=== PATIENT | male | born 1960 | race Caucasian/White ===

== ENCOUNTER 2018-12-25 22:59 | Emergency (ER) | payer OTHER ==
[~2018-12-25] VITALS: Ht 170.1 cm; Wt 86.2 kg
--- NOTE | ~2018-12-25 | EKG ---
[place], [place] ELECTROCARDIOGRAM REPORT NAME: JAVIER GARZON UNIT #: [id number] ROOM: DOCTOR: EPIPHANY DRAFT REPORT BIRTHDATE: [birth year] [facility] Test Date: 2018-12-25 Test Time: 23:49:00 Pat Name: JAVIER GARZON Department: ER Room: 17 Gender: M [employer] Sales Representative: Charlie Merlos : 1960 Requested By: ROSALBA MAC Order Number: [id number] Reading MD: Alice Mendoza Measurements Intervals [place] Rate: 106 P: 41 IL: 152 QRS: 14 QRSD: 79 T: -56 QT: 328 QTc: 436 Interpretive Statements Sinus tachycardia Nonspecific T abnormalities, Electronically Signed On 12-30-2018 12:55:20 PDT by Alice Mendoza CM:EKGRPT:ELECTROCARDIOGRAM REPORT [id number] ROSALBA MAC EPIPHANY DRAFT REPORT ROSALBA MAC
[2018-12-25] MEDS ORDERED: NORVASC2.5 MG PO (23:19)
[2018-12-25] MEDS ORDERED: ALPRAZOLAM0.5 M3 PO (23:19)
[2018-12-25] MEDS ORDERED: ZYRTEC10 M3 PO (23:20)
[2018-12-25] MEDS ORDERED: FLONASE ALLERG9.9 ML NAS (23:20)
[2018-12-25 23:46] LABS: BASO % 0.2 % (0.0-1.0); EOS # 0.1 10*3/uL (0.0-0.4); EOS % 0.9 % (1.0-4.0); HEMATOCRIT 41.7 % (42.0-52.0); HEMOGLOBIN 14.8 g/dl (14.0-18.0); LYMPH % 15.6 % (27.0-41.0); MEAN CELL VOLUME 89.9 fl (80.0-94.0); MEAN CORPUSCULAR HGB 31.9 pg (27.0-31.0); MEAN CORPUSCULAR HGB CONC 35.5 g/dl (33.0-37.0); MEAN PLATELET VOLUME 9.9 fl (9.6-12.3); MONO # 0.9 10*3/uL (0.1-1.0); MONO % 7.3 % (3.0-9.0); NEUT # 9.5 10*3/uL (2.3-7.9); NEUT % 75.4 % (47.0-73.0); PLATELET COUNT AUTOMATED 162 10*3/uL (130-400); RED BLOOD COUNT 4.64 10*6/uL (4.50-5.90); RED CELL DISTRI WIDTH 12.6 % (0-14.5); WHITE BLOOD COUNT 12.6 10*3/uL (4.8-10.8)
[2018-12-25 23:59] LABS: ACT PARTIAL THROMBO TIME 28.1 SECONDS (20.0-32.1); INTERNATIONAL NORM RATIO 0.9 (2.0-3.5)
[2018-12-26 00:01] LABS: ALBUMIN 3.8 gm/dl (3.1-4.5); ALKALINE PHOSPHATASE 54 U/L (45-117); BUN 8 mg/dl (7-24); CHLORIDE 107 mmol/L (98-107); CREATININE 1.22 mg/dL (0.70-1.30); LIPASE 112 U/L (73-393); POTASSIUM 3.5 mmol/L (3.5-5.1); SGOT/AST 23 IU/L (3-35); SGPT/ALT 40 U/L (12-78); SODIUM 141 mmol/L (136-145); TOTAL PROTEIN 7.3 gm/dL (6.4-8.2)
[2018-12-26 00:02] LABS: TROPONIN I < 0.015 ng/ml (<0.045)
[2018-12-26] MEDS ORDERED: TESSALON PERLE100 M1 PO (01:53)
[2018-12-26] MEDS ORDERED: DOXYCYCLINE100 M3 PO (01:53)
== END 2018-12-26 02:14 | disposition home or self-care (01) ==
LOC: ED 22:59
PROVIDERS: Nurse Practitioner Family
DX: J06.9 Acute upper respiratory infection, unspecified (principal); Z88.0 Allergy status to penicillin; Z88.1 Allergy status to other antibiotic agents; Z79.899 Other long term (current) drug therapy

== ENCOUNTER 2024-01-31 12:28 | Emergency (ER) | payer OTHER ==
[~2024-01-31] VITALS: Wt 81.6 kg
[~2024-01-31 12:28] MED LIST: ALPRAZOLAM0.5 M3 PO; DOXYCYCLINE100 M3 PO; FLONASE ALLERG9.9 ML NAS; NORVASC2.5 MG PO; TESSALON PERLE100 M1 PO; ZYRTEC10 M3 PO
[2024-01-31 14:24] LABS: BILIRUBIN Negative (Negative); BLOOD 3+ (Negative); CLARITY Cloudy (Clear); COLOR Orange (Yellow); GLUCOSE Negative (Negative); KETONE Negative (Negative); LEUKO ESTERASE Trace (Negative); NITRITE Negative (Negative); PH 5.5 (4.5-8.0); UROBILINOGEN 0.2 E.U./dl (0.0-1.0)
[2024-01-31 14:34] LABS: BACTERIA 1+; RBC TNTC rbc/hpf (0-2)
== END 2024-01-31 14:53 | disposition home or self-care (01) ==
LOC: ED 12:28
PROVIDERS: Emergency Medicine
DX: N20.0 Calculus of kidney (principal); R31.9 Hematuria, unspecified; F41.9 Anxiety disorder, unspecified; Z88.0 Allergy status to penicillin; Z88.8 Allergy status to other drugs, medicaments and biological substances